=== PATIENT | male | born 1960 | race Hispanic/Latino ===

== ENCOUNTER 2020-12-20 08:45 | Emergency (ER) | payer SELFPAY ==
[~2020-12-20] VITALS: Ht 167.6 cm; Wt 81.6 kg
[2020-12-20 08:47] VITALS: BP 135/65
[2020-12-20 11:00] VITALS: BP 145/84
[2020-12-20 12:06] LABS: BASOPHILS % (AUTO) 0.2 % (0.0-5.0); EOSINOPHILS % (AUTO) 0.1 % (0.0-8.0); HEMATOCRIT 49.1 % (42-54); LYMPHOCYTES % (AUTO) 17.8 % (21.0-51.0); MEAN CORPUSCULAR HEMOGLOBIN 31.6 pg (27.0-33.0); MEAN CORPUSCULAR HGB CONC 32.6 g/dL (32.0-36.0); MONOCYTES % (AUTO) 9.9 % (3.0-13.0); NEUTROPHILS % (AUTO) 71.7 % (40.0-77.0); PLATELET COUNT (AUTO) 181 K/uL (130-400); RED BLOOD CELL COUNT(AUTO) 5.06 MIL/uL (4.50-6.20); RED CELL DISTRIBUTION WIDTH 15.2 % (11.0-15.5); WHITE BLOOD COUNT (AUTO) 17.8 K/uL (4.8-10.8)
[2020-12-20 12:15] LABS: CREATININE 1.2 mg/dL (0.5-1.5); POTASSIUM 5.6 mmol/L (3.5-5.1)
[2020-12-20 12:19] LABS: ALBUMIN 3.6 g/dL (3.5-5.0); BILIRUBIN,TOTAL 1.5 mg/dL (0.2-1.0); TOTAL PROTEIN, SERUM 8.7 g/dL (6.0-8.3)
[2020-12-20] MEDS ORDERED: 0.9%NACL 1000ML 1,000 ML IV ONE ×2 (12:30→14:17)
[2020-12-20] MEDS ORDERED: ONDANSETRON 4MG INJ IVP ONE (12:30)
[2020-12-20 12:34] LABS: APPEARANCE,URINE CLEAR (CLEAR); BILIRUBIN,URINE SMALL (NEGATIVE); COLOR,URINE YELLOW (YELLOW); GLUCOSE, URINE (UA) NEGATIVE (NEGATIVE); KETONES,URINE 15 mg/dL (NEGATIVE); LEUKOCYTE ESTERASE ,URINE NEGATIVE (NEGATIVE); NITRATE,URINE NEGATIVE (NEGATIVE); OCCULT BLOOD,URINE NEGATIVE (NEGATIVE); PROTEIN,URINE TRACE mg/dL (NEGATIVE)
[2020-12-20 12:39] LABS: RBC,URINE 0-1 /HPF (0-1); WBC,URINE 0-1 /HPF (0-1)
[2020-12-20 12:40] LABS: BACTERIA,URINE Few /HPF (None Seen); HYALINE CASTS, URINE 0-1 /LPF (0-1 /LPF); MUCUS,URINE Moderate LPF (None Seen); SQUAMOUS EPITHELIAL CELL,UR 0-2 /HPF (0-2)
[2020-12-20 13:10] LABS: CRP QUANTITATIVE 16.9 mg/L (0.00-9.0)
[2020-12-20] MEDS ORDERED: METR500T PO (14:05)
[2020-12-20] MEDS ORDERED: ONDA4TAB10 PO (14:05)
[2020-12-20] MEDS ORDERED: LEVO500T89 PO (14:05)
[2020-12-20] MEDS ORDERED: METRONIDAZOLE 500 MG TABLET PO SCH (14:30)
[2020-12-20] MEDS ORDERED: LEVOFLOXACIN 500 MG TABLET PO SCH (14:30)
[2020-12-20 14:58] VITALS: BP 135/75
== END 2020-12-20 15:01 | disposition home or self-care (01) ==
LOC: EDH 08:45
DX: K52.9 Noninfective gastroenteritis and colitis, unspecified (principal); Z79.899 Other long term (current) drug therapy
CPT/HCPCS: 36415; 71045; 74176; 80053; 81001; 82150; 83605; 83690; 85025; 86140; 87040 ×2; 96361; 96374; 99285; J2405; J7030